=== PATIENT | female | born 1945 | race Caucasian/White ===

== ENCOUNTER 2024-03-19 20:17 | Emergency (ER) | payer MEDICARE ==
[2024-03-19 20:41] VITALS: RESP 16; TEMP 97.6
[2024-03-19 21:09] LABS: BASOPHIL % 1.3 % (0.1-1.2); Eosinophil % 2.6 % (0.7-5.8); Eosinophil (Absolute #) 0.21 x10^3/uL (0.04-0.36); Hematocrit 34.4 % (34.1-44.9); Hemoglobin 11.3 g/dL (11.2-15.7); IMMATURE GRAN # 0.06 x10^3u/L (0.001-0.031); IMMATURE GRAN % 0.8 % (0.001-0.429); Lymphocyte (Absolute #) 1.56 x10^3/uL (1.18-3.74); Lymphocytes % 19.7 % (19.3-51.7); Mean Cell Volume 107.2 fL (79.4-94.8); Mean Corpuscular Hemoglobin 35.2 pg (25.6-32.2); Mean Corpuscular Hgb Concent. 32.8 g/dL (32.2-35.5); Mean Platelet Volume 8.7 fL (9.4-12.3); Monocytes % 10.1 % (4.7-12.5); Neutrophil % 65.5 % (34.0-71.1); Platelet Count 354 x10^3/uL (182-369); Red Blood Count 3.21 x10^6/uL (3.93-5.22); Red Cell Distribution Width 13.6 % (11.7-14.4); White Blood Count 7.9 x10^3/uL (3.98-10.04)
[2024-03-19 21:27] LABS: ALBUMIN 3.8 g/dL (3.5-5.0); ANION GAP 9.5 MEQ/L (5-15); BILIRUBIN,TOTAL 0.3 mg/dL (0.2-1.3); Calcium 9.2 mg/dL (8.4-10.2); Creatinine 1 0.82 mg/dL (0.52-1.04); EST GLOMERULAR FILTRATION RATE 74.1 ML/MIN; Potassium 4.4 mmol/L (3.5-5.1); Total Protein 6.4 g/dL (6.3-8.2)
[2024-03-19] MEDS ORDERED: TYLENOL 325 MG ONE (21:48)
[2024-03-19] MEDS: TYLENOL 325 MG PO ONE (21:51)
[2024-03-19 23:16] LABS: Appearance Clear (Clear); Bacteria None Seen /HPF (None Seen); Bilirubin Negative (Negative); Blood Negative (Negative); Epithelial Cells None Seen /HPF (None Seen); Glucose, Urine Negative (Negative); Hyaline Casts NONE SEEN /LPF (0-2); Ketones Negative (Negative); Leukocyte Esterase Trace (Negative); Nitrite Negative (Negative); Protein,Urine Dip Negative (Negative); RBC 0-2 /HPF (0-5)
--- NOTE | 2024-03-19 23:18 | ERPHSYRPT ---
- History of Present Illness Time Seen by Provider: 03/19/24 20:30 Source: patient Exam Limitations: no limitations Patient Subjective Stated Complaint: pt states she fell in the kitchen and hit her head on the fridge Triage Nursing Assessment: pt came into the er via ambulance; pt is axo x4; c/o fall; pt states 5/10 pain to rt side head, rt forearm, rt ribs; skin tear present to rt forearm; laceration to rt eyebrow; laceration measures 1 cm x 0.5 cm; pt denies neck pain or tenderness; tenderness to rt lower ribs; no bruising or deformity present to rt ribs; no shortening or rotation to lower extremities; skin PDW; no respiratory distress present; vitals wnl Physician History: Patient is a 78-year-old female presents to our ED via EMS for evaluation status post fall. Patient states she was at [employer] when she had a mechanical fall. Patient was maneuvering her walker while she was carrying 2 donuts accidentally kicked the wheel of her walker causing her to fall. Patient head hit the refrigerator. The fall was not associated with neuro cardiovascular symptomology. No associated chest pain or shortness of breath. No nausea vomiting or diaphoresis. No numbness tingling or weakness. Patient fell towa rds her right side and complains of pain to the right side of her head, right ribs. Patient has skin tears to her right forearm. No LOC. No neck pain. Cervical spine cleared clinically. Patient otherwise feels well. She voices no other complaints or concerns at this time. Portions of this note were created with voice recognition technology. There may be grammatical, spelling, punctuation or sound alike errors Timing/Duration: today Severity: moderate Modifying Factors: Improves With: nothing Associated Symptoms: denies symptoms Allergies/Adverse Reactions: amoxicillin Allergy (Verified 03/19/24 20:28) Rash Penicillins Allergy (Verified 03/19/24 20:28) Rash Home Medications: Aspirin 81 mg PO DAILY 09/24/19 [History] Hydroxyurea 500 mg PO DAILY 09/24/19 [History] Omeprazole 40 mg PO DAILY 09/24/19 [History] Pravastatin Sodium [Pravachol] 40 mg PO HS 09/24/19 [History] Acetaminophen 325 mg [Tylenol 325 mg] 650 mg PO Q6HPRN PRN 03/19/24 [History] Bisacodyl 10 mg [Dulcolax 10 MG SUPP] 10 mg VA STAT 03/19/24 [History] Calcium Carbonate [Tums] 2 tab PO Q4HPRN PRN 03/19/24 [History] Magnesium Hydroxide [Milk of Magnesia] 30 ml PO DAILY PRN 03/19/24 [History] Menthol [Biofreeze] 1 applic TP Q6HPRN PRN 03/19/24 [History] Mirtazapine [Remeron] 15 mg PO HS 03/19/24 [History] Sodium Phosphate,[place]-Dibasic [Fleet Enema] 1 applic RC DAILY PRN 03/19/24 [History] polyethylene glycoL 3350 [Polyethylene Glycol 3350] 17 gm PO DAILY 03/19/24 [History] Travel Risk - International Travel Have you traveled outside of the country in past 3 weeks: No - Emerging Infectious Disease Are you exhibiting symptoms associated with any current EIDs: No - Review of Systems Constitutional: No Symptoms, No Fever, No Chills Eyes: No Symptoms Ears, Nose, & Throat: No Symptoms Respiratory: No Symptoms, No Cough, No Dyspnea Cardiac: No Symptoms, No Chest Pain, No Edema, No Syncope Abdominal/Gastrointestinal: No Symptoms, No Abdominal Pain, No Nausea, No V omiting, No Diarrhea Genitourinary Symptoms: No Symptoms, No Dysuria Musculoskeletal: No Symptoms, No Back Pain, No Neck Pain Skin: No Symptoms, No Rash Neurological: No Symptoms, No Dizziness, No Focal Weakness, No Sensory Changes Psychological: No Symptoms Endocrine: No Symptoms Hematologic/Lymphatic: No Symptoms Immunological/Allergic: No Symptoms All Other Systems: Reviewed and Negative - Past Medical History Pertinent Past Medical History: Yes Neurological History: No Pertinent History ENT History: Cataracts Cardiac History: Deep Vein Thrombosis Respiratory History: No Pertinent History Endocrine Medical History: No Pertinent History Musculoskeletal History: No Pertinent History GI Medical History: Hernia, GERD History: No Pertinent History Psycho-Social History: No Pertinent History Female Reproductive Disorders: No Pertinent History Other Medical History: "surface" blood clot. - Past Surgical History Past Surgical History: Yes Neuro Surgical History: No Pertinent History Cardiac: No Pertinent History Respiratory: No Pertinent History Gastrointestinal: Appendectomy Genitourinary: No Pertinent History Musculoskeletal: No Pertinent History Female Surgical History: Hysterectomy Other Surgical History: hand surgery. - Social History Smoking Status: Never smoker Exposure to second hand smoke: No Drug Use: none - Social Determinants of Health Will the patient participate in the screening: Yes Do you worry about a steady place to live?: No Do you have any problems with any of the following?: No known problems In the past 12 months,have you had to go without utilities?: No Transportation Issues: No Has anyone in your support network made you feel unsafe?: No Have you or anyone in your house had to go without enough: No - Nursing Vital Signs Nursing Vital Signs: Initial Vital Signs Temperature 97.6 F 03/19/24 20:28 Pulse Rate 85 03/19/24 20:28 Respiratory Rate 16 03/19/24 20:28 Blood Pressure 142/72 03/19/24 20:28 O2 Sat by Pulse Oximetry 100 03/19/24 20:28 Pain Scale Pain Intensity 0 - Physical Exam General Appearance: no apparent distress, alert Eye Exam: PERRL/EOMI, eyes nml inspection Ears, Nose, Throat Exam: normal ENT inspection, TMs normal, pharynx normal, moist mucous membranes Neck Exam: normal inspection, non-tender, supple, full range of motion Respiratory Exam: normal breath sounds, lungs clear, airway intact, No respiratory distress Cardiovascular Exam: regular rate/rhythm, normal heart sounds, normal peripheral pulses Gastrointestinal/Abdomen Exam: soft, normal bowel sounds, No tenderness, No mass Back Exam: normal inspection, normal range of motion, No CVA tenderness, No vertebral tenderness Extremity Exam: normal inspection, normal range of motion, pelvis stable, other (Superficial skin tear to right forearm) Neurologic Exam: alert, oriented x 3, cooperative, normal mood/affect, nml cerebellar function, nml station & gait, sensation nml, No motor deficits Skin Exam: normal color, warm, dry, other (1.5 cm stellate laceration to the right eyebrow latter-day area.), No rash Lymphatic Exam: No adenopathy SpO2 Interpretation: normal SpO2: 97 O2 Delivery: Room Air Procedures - Laceration/Wound Repair Right Eye Time of Procedure: 23:30 Wound Location: Right (Right eyebrow all laceration) Wound Length (cm): 1.5 Wound's Depth, Shape: superficial Wound Explored: clean Irrigated: Yes Hibiclens Prep: Yes Anesthesia: 1% Lidocaine Volume Anesthetic (ccs): 4 Wound Debrided: No debridement indicated Suture Size/Type: 5-0, ethilon Number of Sutures: 6 Layer Closure?: No Sterile Dressing Applied?: Yes Splint Applied?: No Progress: Patient tolerated procedure well. No intra or postprocedural complications. 03/19/24 23:45 - Course Nursing assessment & vital signs reviewed: Yes - CT Exams Head CT Interpretation: Tele-radiologist Report (No comps bilateral maxillary disease otherwise normal head) Chest CT Interpretation: Tele-radiologist Report (Minimally displaced posterior lateral right ninth and 10th rib fracture no pneumothorax remote T11 compression fracture 5 mm gallstone) Ordered Tests: Active Orders 24 hr Category Date Time Status Customs Collector STAT Care 03/19/24 20:54 Active IV Insertion STAT Care 03/19/24 20:54 Active Pulse Oximetry (ED) STAT Care 03/19/24 20:54 Active CHEST WITHOUT CONTRAST [CT] Stat Exams 03/19/24 21:22 Taken HEAD WITHOUT CONTRAST [CT] Stat Exams 03/19/24 21:17 Taken LOWER EXTREMITY WO CONTRAST [CT] Routine Exams 03/20/24 00:19 Completed CBC W DIFF Stat Lab 03/19/24 21:00 Completed CMP Stat Lab 03/19/24 21:00 Completed TROPONIN Q4H Lab 03/19/24 21:00 Completed TROPONIN Q4H Lab 03/20/24 01:00 Ordered TROPONIN Q4H Lab 03/20/24 05:00 Ordered UA W/RFX UR CULTURE Stat Lab 03/19/24 23:03 Completed Medication Summary Discontinued Medications Generic Name Dose Route Start Last Admin Trade Name Emma PRN Reason Stop Dose Admin Acetaminophen 975 mg 03/19/24 21:13 03/19/24 21:51 Acetaminophen 325 Mg Tablet PO 03/19/24 21:14 975 mg STAT ONE Administration Acetaminophen Confirm 03/19/24 21:48 Acetaminophen 325 Mg Tablet Administered 03/19/24 21:49 Dose 975 mg .ROUTE .STK-MED ONE Lidocaine HCl 3 ml 03/19/24 23:28 03/19/24 23:29 Lidocaine Hcl 1% 20 Ml Mdv 20 Ml Ml IJ 03/19/24 23:29 3 ml STAT ONE Administration Lidocaine HCl Confirm 03/19/24 23:26 Lidocaine Hcl 1% 20 Ml Mdv 20 Ml Ml Administered 03/19/24 23:27 Dose 3 ml .ROUTE .K-MED ONE Lab/Rad Data: Laboratory Result Diagrams 03/19/24 21:00 03/19/24 21:00 Laboratory Results 03/19/24 03/19/24 03/19/24 Range/Units 23:03 21:00 21:00 WBC (3.98-10.04) x10^3/uL RBC (3.93-5.22) x10^6/uL Hgb (11.2-15.7) g/dL Hct (34.1-44.9) % MCV (79.4-94.8) fL MCH (25.6-32.2) pg MCHC (32.2-35.5) g/dL RDW (11.7-14.4) % Plt Count (182-369) x10^3/uL MPV (9.4-12.3) fL Gran % (34.0-71.1) % Immature Gran % (Auto) (0.001-0.429) % Nucleat RBC Rel Count (0.00-0.2) % Eos # (Auto) (0.04-0.36) x10^3/uL Immature Gran # (Auto) (0.001-0.031) x10^3u/L Absolute Lymphs (auto) (1.18-3.74) x10^3/uL Absolute Monos (auto) (0.24-0.86) x10^3/uL Absolute Nucleated RBC (0.00-0.012) x10^3u/L Lymphocytes % (19.3-51.7) % Monocytes % (4.7-12.5) % Eosinophils % (0.7-5.8) % Basophils % (0.1-1.2) % Absolute Granulocytes (1.56-6.13) x10^3/uL Basophils # (0.01-0.08) x10^3/uL Sodium 136 (135-145) mmol/L Potassium 4.4 (3.5-5.1) mmol/L Chloride 103 (98-107) mmol/L Carbon Dioxide 27 (22-30) mmol/L Anion Gap 9.5 (5-15) MEQ/L BUN 21 H (7-17) mg/dL Creatinine 0.82 (0.52-1.04) mg/dL Estimated GFR 74.1 ML/MIN Glucose 110 H (74-106) mg/dL Calcium 9.2 (8.4-10.2) mg/dL Total Bilirubin 0.30 (0.2-1.3) mg/dL AST 24 (14-36) U/L ALT 19 (0-35) U/L Alkaline Phosphatase 38 (38-126) U/L Troponin I < 0.012 (0.000-0.033) ng/mL Serum Total Protein 6.4 (6.3-8.2) g/dL Albumin 3.8 (3.5-5.0) g/dL Urine Color Yellow (Yellow) Urine Appearance Clear (Clear) Urine pH 7.0 (4.6-8.0) Ur Specific [place] 1.020 (1.005-1.030) Urine Protein Negative (Negative) Urine Glucose (UA) Negative (Negative) mg/dL Urine Ketones Negative (Negative) Urine Blood Negative (Negative) Urine Nitrite Negative (Negative) Urine Bilirubin Negative (Negative) Urine Urobilinogen 1.0 A (0.2) mg/dL Ur Leukocyte Esterase Trace A (Negative) U Hyaline Cast (Auto) NONE SEEN (0-2) /LPF Urine Microscopic RBC 0-2 (0-5) /HPF Urine Microscopic WBC 3-5 (0-5) /HPF Ur Epithelial Cells None Seen (None Seen) /HPF Urine Bacteria None Seen (None Seen) /HPF Urine Culture Reflexed NO (NO) 03/19/24 Range/Units 21:00 WBC 7.9 (3.98-10.04) x10^3/uL RBC 3.21 L (3.93-5.22) x10^6/uL Hgb 11.3 (11.2-15.7) g/dL Hct 34.4 (34.1-44.9) % MCV 107.2 H (79.4-94.8) fL MCH 35.2 H (25.6-32.2) pg MCHC 32.8 (32.2-35.5) g/dL RDW 13.6 (11.7-14.4) % Plt Count 354 (182-369) x10^3/uL MPV 8.7 L (9.4-12.3) fL Gran % 65.5 (34.0-71.1) % Immature Gran % (Auto) 0.8 H (0.001-0.429) % Nucleat RBC Rel Count 0.0 (0.00-0.2) % Eos # (Auto) 0.21 (0.04-0.36) x10^3/uL Immature Gran # (Auto) 0.06 H (0.001-0.031) x10^3u/L Absolute Lymphs (auto) 1.56 (1.18-3.74) x10^3/uL Absolute Monos (auto) 0.80 (0.24-0.86) x10^3/uL Absolute Nucleated RBC 0.00 (0.00-0.012) x10^3u/L Lymphocytes % 19.7 (19.3-51.7) % Monocytes % 10.1 (4.7-12.5) % Eosinophils % 2.6 (0.7-5.8) % Basophils % 1.3 H (0.1-1.2) % Absolute Granulocytes 5.20 (1.56-6.13) x10^3/uL Basophils # 0.10 H (0.01-0.08) x10^3/uL Sodium (135-145) mmol/L Potassium (3.5-5.1) mmol/L Chloride (98-107) mmol/L Carbon Dioxide (22-30) mmol/L Anion Gap (5-15) MEQ/L BUN (7-17) mg/dL Creatinine (0.52-1.04) mg/dL Estimated GFR ML/MIN Glucose (74-106) mg/dL Calcium (8.4-10.2) mg/dL Total Bilirubin (0.2-1.3) mg/dL AST (14-36) U/L ALT (0-35) U/L Alkaline Phosphatase (38-126) U/L Troponin I (0.000-0.033) ng/mL Serum Total Protein (6.3-8.2) g/dL Albumin (3.5-5.0) g/dL Urine Color (Yellow) Urine Appearance (Clear) Urine pH (4.6-8.0) Ur Specific [place] (1.005-1.030) Urine Protein (Negative) Urine Glucose (UA) (Negative) mg/dL Urine Ketones (Negative) Urine Blood (Negative) Urine Nitrite (Negative) Urine Bilirubin (Negative) Urine Urobilinogen (0.2) mg/dL Ur Leukocyte Esterase (Negative) U Hyaline Cast (Auto) (0-2) /LPF Urine Microscopic RBC (0-5) /HPF Urine Microscopic WBC (0-5) /HPF Ur Epithelial Cells (None Seen) /HPF Urine Bacteria (None Seen) /HPF Urine Culture Reflexed (NO) - Progress Progress: improved Progress Note: I spoke to Dr. Alcaraz orthopedic surgery at 1 AM regarding the rib fracture and the right superior pubic ramus fracture. He advised that patient may go home if pain is controlled. Patient ambulated in our ED. Patient had some discomfort but states the pain is tolerable. Patient will be discharged home to [facility]. We will contact patient's primary care physician from [facility] regarding today's visit. Dr. Alcaraz advised patient may have physical therapy. Patient reports she is currently undergoing physical therapy at [facility]. Patient's family member is at the bedside. He will drive patient back home. We offered hospitalization for physical therapy. Patient declined. Patient states she wants to go home and does not want to stay in the hospital today. A referral to the orthopedic clinic will be made. Patient to follow-up in 48 hours for reevaluation. Portions of this note were created with voice recognition technology. There may be grammatical, spelling, punctuation or sound alike errors Complexity of problem addressed is moderate acute complicated. no critical care time. Complex of data reviewed and analyzed is extensive. Test ordered chest reviewed results analyzed and correlated clinically with history and physical exam. Management discussed with orthopedic surgery Dr. Alcaraz, a referral to the orthopedic clinic completed. Risk of complication and or risk of morbidity/mortality of patient management is low. Vital stable. Time spent to discharge patient is approximately 20 minutes. Plan of care established for shared decision making. No social determinants of health present to impede follow-up. Portions of this note were created with voice recognition technology. There may be grammatical, spelling, punctuation or sound alike errors 03/20/24 01:04 Counseled pt/family regarding: lab results, diagnosis, need for follow-up, rad results - Departure Departure Disposition: Home Clinical Impression: Fall, Right rib fracture, Skin tear, Gallstone, Maxillary sinus disease, Eyebrow laceration, Fracture of right superior pubic ramus Condition: Stable Critical Care Time: No Referrals: BLAKE WHITAKER [Primary Care Provider] - Follow up/PCP as directed Instructions: Rib fractures in adults, Gallstones, Taking care of cuts, scrapes, and puncture wounds Additional Instructions: Discharge/Care Plan REECE OSULLIVAN was seen on 03/20/24 in the Emergency Room. The patient was counseled regarding Diagnosis,Lab results, Imaging studies, need for follow up and when to return to the Emergency Room. Prescriptions given: Discharge Note I have spoken with the patient and/or caregivers. I have explained the patient's condition, diagnosis and treatment plan based on the information available to me at this time. I have answered the patient's and/or caregiver's questions and addressed any concerns. The patient and/or caregivers have as good understanding of the patient's diagnosis, condition and treatment plan as can be expected at this point. The vital signs have been stable. The patient's condition is stable and appropriate for discharge from the emergency department. The patient will pursue further outpatient evaluation with the primary care physician or other designated or consulting physician as outlined in the discharge instructions. The patient and/or caregivers are agreeable to this plan of care and follow-up instructions have been explained in detail. The patient and/or caregivers have received these instruction. The patient/and or caregivers are aware that any significant change in condition or worsening of symptoms should prompt an immediate return to this or the closest emergency department or call 911. Outpatient Orders: Ortho Referral Time Frame: 1 Day, Facility: [facility]. Hosp, Location: [facility]
[2024-03-19] MEDS ORDERED: XYLOCAINE 1% HCL 20 ML MDV ONE (23:26)
[2024-03-19] MEDS: XYLOCAINE 1% HCL 20 ML MDV IJ ONE (23:29)
--- NOTE | 2024-03-20 00:49 | XRAY ---
CLINICAL HISTORY: FALL RT HIP PAIN COMPARISON: None. TECHNIQUE: Contiguous axial CT images of right hip were obtained without intravenous contrast. Coronal and sagittal reconstructions were likewise performed and indicated to increase the sensitivity for detecting clinically relevant pathology. CT scan was performed according to ALARA (as low as reasonable achievable). FINDINGS: Linear displaced fracture of right superior pubic ramus. No destructive osseous lesion. The visualized muscles and tendons appear grossly unremarkable. No cortical destruction to suggest osteomyelitis. No abscess formation. No significant joint effusion. There are no soft tissue masses. Normal subcutaneous adipose space. IMPRESSION: 1. Linear displaced fracture of right superior pubic ramus. Electronically Signed by: Michael Sierra MD. (03/20/2024 00:45:11 EST)
[2024-03-20 01:03] VITALS: BP 120/69; PULSE 89
[2024-03-20 01:05] VITALS: O2SAT 97
[2024-03-20] MEDS ORDERED: NORCO 5/325 MG ONE (01:14)
[2024-03-20] MEDS: NORCO 5/325 MG PO ONE (01:15)
--- NOTE | 2024-03-20 08:54 | XRAY ---
Indication: Right frontal hematoma/laceration following fall. Multiple contiguous axial images obtained through the head without contrast. Comparison: None Age-appropriate global atrophy. No acute intracranial hemorrhage, abnormal extra-axial fluid collection, or mass effect. Fourth ventricle is midline without hydrocephalus. Kessler-white matter differentiation preserved. Bony calvarium intact. Moderate right and mild left maxillary sinus fluid leveling. Remaining paranasal sinuses and mastoid air cells are clear. Impression: Paranasal sinus disease. Remaining CT head without contrast exam is negative.
--- NOTE | 2024-03-20 08:58 | XRAY ---
Indication: Right rib pain following fall. Multiple contiguous axial images obtained through the chest without contrast. Comparison: None Osseous structures demineralized. Minimally displaced acute fractures seen posterior lateral right 9/10 ribs. No underlying pneumothorax/hemothorax. Remaining lungs demonstrate bilateral dependent atelectasis and a few tiny calcified granulomas. No infiltrate or consolidation. Heart not enlarged. Aorta is minimally arteriosclerotic without aneurysm. [place] precarinal and small right hilar calcified nodes. No pathologic mediastinal lymphadenopathy. Remaining bony thorax demonstrates minimal/mild degenerative changes throughout spine and remote anterior T11 compression fracture Limited upper abdomen demonstrates 5 mm gallstone and tiny hepatic/splenic calcified granulomas. Impression: 1. Right 9/10 acute rib fractures without pneumothorax/hemothorax. 2. Chronic findings including arteriosclerotic disease, chronic bony findings, tiny gallstone, and old granulomatous disease.
== END 2024-03-20 01:20 ==
LOC: ED 20:17
DX: S01.111A Laceration without foreign body of right eyelid and periocular area, initial encounter (principal); W19.XXXA Unspecified fall, initial encounter; S41.111A Laceration without foreign body of right upper arm, initial encounter; S22.31XA Fracture of one rib, right side, initial encounter for closed fracture; S32.591A Other specified fracture of right pubis, initial encounter for closed fracture
CPT/HCPCS: 12011; 36415; 70450; 71250; 73700; 80053; 81001; 84484; 85025; 93041; 94760; 96372; 99285; A9270-GY